=== PATIENT | male | born 1950 | race Caucasian/White ===

== ENCOUNTER → 2018-11-10 | Outpatient (CLI) | payer OTHER, BC ==
[~2018-11-10] MED LIST: ALLOPURINOL 10100 M1 PO; LEXAPRO 10 MG T10 M1 PO; LIPITOR10 MG PO; METFORMIN HCL500 MG PO
--- NOTE | 2018-11-10 17:33 | EKG ---
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 : 1950 Requested By: Sivan Schuster Order Number: [id number] MD: Yon Waller Measurements Intervals [place] Rate: 78 P: -4 LA: 228 QRS: -19 QRSD: 81 T: 12 QT: 376 QTc: 429 Interpretive Statements Sinus rhythm Prolonged LA interval Abnormal R-wave progression, early transition Inferior infarct, old No previous ECG available for comparison Electronically Signed On 11-10-2018 17:32:58 [employer] by Yon Waller [email or web address] ��������������������������������������������� <ELECTRONICALLY SIGNED> ���������������������������������������� By: Yon Waller MD, [facility] ��������������������������������������������� 11/10/18 1732 1504 1504 Yon Waller MD, FACC /EPI
== END ==
LOC: LITH 14:34
DX: N20.0 Calculus of kidney (principal); Z79.899 Other long term (current) drug therapy; Z98.890 Other specified postprocedural states